=== PATIENT | female | born 1985 | race Caucasian/White ===

== ENCOUNTER 2022-03-01 22:33 | Emergency (ER) | payer OTHER ==
[2022-03-01 22:52] VITALS: BP 106/70; PULSE 82; RESP 16; TEMP 98.4
--- NOTE | 2022-03-01 23:13 | XR ---
EXAMINATION TYPE: XR chest 2V DATE OF EXAM: 03/01/2022 COMPARISON: NONE HISTORY: Cough. Rib pain TECHNIQUE: 2 views FINDINGS: Heart and mediastinum are normal. Lungs are clear. Diaphragm is normal. Bony thorax is inta ct. The pulmonary vascularity is normal. IMPRESSION: Normal chest. No evidence of pneumothorax.
[2022-03-02] MEDS ORDERED: predniSONE 50 MG TAB PO STA (00:20)
--- NOTE | 2022-03-02 00:26 | ED ---
URI HPI - General Chief Complaint: Upper Respiratory Infection Stated Complaint: left rib pain Time Seen by Provider: 03/02/22 00:10 Source: patient, RN notes reviewed Mode of arrival: ambulatory Limitations: no limitations - History of Present Illness Initial Comments: This is a pleasant 36-year-old female presents to emergency department complaining of left chest wall pain which is exacerbated by breathing and coughing. Patient states she started getting ill last week with cough, runny nose, wheezing. Patient had 2 children in the house both of which had RSV. Rates that she was wheezing up to yesterday. She was controlling that with her inhaler. However she states she has a sharp pain in her left chest which is exacerbated by breathing. Patient has had no recent surgeries. No immobilization. No history of DVT or PE. Patient is status post hysterectomy. No family history of blood clots. No headache, no fever or chills, no changes in vision or hearing, no sore throat or difficulty with speech, no neck pain, POSITIVE productive cough, no abdominal pain, no nausea or vomiting, no changes in urination or bowel movements, no numbness or tingling, no extremity pain, no skin rashes or lesions. Past medical, surgical, social, and family history reviewed. MD Complaint: cough - Related Data Previous Rx's Medication Instructions Recorded methylPREDNISolone Dose Pack 4 mg PO DIRECTED #21 tab 03/02/22 [Medrol Dose Pack] Allergies Allergy/AdvReac Type Severity Reaction Status Date / Time azithromycin Allergy Rash/Hives Verified 03/01/22 22:55 cephalexin [From Keflex] Allergy Rash/Hives Verified 03/01/22 22:54 latex Allergy Rash/Hives Verified 03/01/22 22:54 milk Allergy Rash/Hives Verified 03/01/22 22:54 Penicillins Allergy Anaphylaxis Verified 03/01/22 22:52 Review of Systems ROS Statement: Those systems with pertinent positive or pertinent negative responses have been documented in the HPI. ROS Other: All systems not noted in ROS Statement are negative. Past Medical History Additional Past Medical History / Comment(s): pancreatitis, endometrosis History of Any Multi-Drug Resistant Organisms: None Reported Past Surgical History: Section, Cholecystectomy, Hysterectomy Past Psychological History: No Psychological Hx Reported Smoking Status: Never smoker Past Alcohol Use History: None Reported Past Drug Use History: None Reported General Exam Limitations: no limitations General appearance: alert, in no apparent distress Head exam: Present: atraumatic, normocephalic, normal inspection Eye exam: Present: normal appearance, PERRL, EOMI. Absent: scleral icterus, conjunctival injection, periorbital swelling ENT exam: Present: normal exam, normal oropharynx, mucous membranes dry, mucous membranes moist, normal external ear exam Neck exam: Present: normal inspection, full ROM. Absent: tenderness, meningismus, lymphadenopathy Respiratory exam: Present: normal lung sounds bilaterally. Absent: respiratory distress, wheezes, rales, rhonchi, stridor, chest wall tenderness, accessory muscle use, decreased breath sounds, prolonged expiratory Cardiovascular Exam: Present: regular rate, normal rhythm, normal heart sounds. Absent: systolic murmur, diastolic murmur, rubs, gallop, clicks GI/Abdominal exam: Present: soft, normal bowel sounds. Absent: distended, tenderness, guarding, rebound, rigid Extremities exam: Present: normal inspection, full ROM, normal capillary refill. Absent: tenderness, pedal edema, joint swelling, calf tenderness Back exam: Present: normal inspection Neurological exam: Present: alert, oriented X3, CN II-XII intact Psychiatric exam: Present: normal affect, normal mood Skin exam: Present: warm, dry, intact, normal color. Absent: rash Course Vital Signs 03/01/22 22:48 Temperature 98.4 F Pulse Rate 82 Respiratory 16 Rate Blood Pressure 106/70 O2 Sat by Pulse 98 Oximetry Medical Decision Making - Medical Decision Making Patient is Perc 0 Given the patient's symptomology and recent exposure to RSV at the patient has postinflammatory cough with pleurisy. Does not appear to be consistent with bacterial pneumonia based on the normal chest x-ray. Not consistent with cardiac ischemic pain. Not consistent with coronary embolism as the patient has a PERC score of 0. We'll obtain an EKG. We'll add on a COVID-19 test just to ensure the patient doesn't have a concomitant infection. The case was discussed in detail with ED attending physician. Presentation, findings, treatment plan discussed in detail. [employer] Dr. Cutler - Lab Data Lab Results 03/02/22 Range/Units 00:03 Coronavirus (PCR) Not Detected (Not Detectd) Disposition Clinical Impression: Pleurisy, Acute viral bronchitis Disposition: HOME SELF-CARE Condition: Good Instructions (If sedation given, give patient instructions): Pleurisy (ED), Acute Bronchitis (ED) Additional Instructions: Follow-up with your regular physician as directed. Return to the ER immediately if any symptoms worsen, new symptoms arise, or any other problems develop. Prescriptions: methylPREDNISolone Dose Pack [Medrol Dose Pack] 4 mg PO DIRECTED #21 tab Is patient prescribed a controlled substance at d/c from ED?: No Referrals: None,Stated [Primary Care Provider] - 1-2 days Time of Disposition: 01:01
== END 2022-03-02 01:21 | disposition home or self-care (01) ==
LOC: EC 22:33
DX: R09.1 Pleurisy (principal); Z88.1 Allergy status to other antibiotic agents; Z91.040 Latex allergy status; Z91.011 Allergy to milk products; Z88.0 Allergy status to penicillin; Z20.822 Contact with and (suspected) exposure to COVID-19
CPT/HCPCS: 71046; 87635; 93005; 99284

== ENCOUNTER 2023-02-06 08:43 | Emergency (ER) | payer OTHER ==
[2023-02-06 08:59] VITALS: RESP 18
[2023-02-06] MEDS ORDERED: IPRATROPIUM-ALBUTEROL 3 ML NEB INHALATION STA (09:05)
[2023-02-06 09:36] LABS: Basophils % (A) 0 %; Eosinophils # (A) 0.2 k/uL (0-0.7); Eosinophils % (A) 3 %; HCT 39.8 % (34.0-46.0); HGB 13.8 gm/dL (11.4-16.0); Lymphocytes # (A) 0.8 k/uL (1.0-4.8); Lymphocytes % (A) 13 %; MCH 31.9 pg (25.0-35.0); MCHC 34.7 g/dL (31.0-37.0); MCV 91.9 fL (80.0-100.0); Mean Platelet Volume 8.6; Monocytes # (A) 0.5 k/uL (0-1.0); Monocytes % (A) 8 %; Neutrophils # (A) 4.3 k/uL (1.3-7.7); Neutrophils % (A) 74 %; Platelet Count 119 k/uL (150-450); RBC 4.33 m/uL (3.80-5.40); WBC 5.8 k/uL (3.8-10.6)
--- NOTE | 2023-02-06 09:43 | XR ---
EXAMINATION TYPE: XR chest 2V DATE OF EXAM: 02/06/2023 COMPARISON: 03/01/2022 INDICATION: Cough difficulty breathing chest pain TECHNIQUE: Frontal and lateral views of the chest are obtained. FINDINGS: The heart size is normal. The pulmonary vasculature is normal. The lungs are clear. IMPRESSION: 1. No acute pulmonary process.
[2023-02-06 09:51] LABS: ALT 19 U/L (4-34); AST 24 U/L (14-36); African American GFR (CKD) >90 (>60 ml/min/1.73 sqM); Alkaline Phosphatase 39 U/L (38-126); Anion Gap 10 mmol/L; Blood Urea Nitrogen 10 mg/dL (7-17); Calcium 9.1 mg/dL (8.4-10.2); Carbon Dioxide 22 mmol/L (22-30); Chloride 108 mmol/L (98-107); Glucose 97 mg/dL (74-99); Non-African American GFR(CKD) >90 (>60 ml/min/1.73 sqM); Partial Thromboplastin Time 24.4 sec (22.0-30.0); Potassium 4.1 mmol/L (3.5-5.1); Prothrombin Time 11.3 sec (10.0-12.5); Sodium 140 mmol/L (137-145); Total Bilirubin 0.5 mg/dL (0.2-1.3); Total Protein 6.8 g/dL (6.3-8.2)
--- NOTE | 2023-02-06 09:53 | ED ---
SOB HPI - General Chief Complaint: Upper Respiratory Infection Stated Complaint: BRITTNEY, sore throat Time Seen by Provider: 02/06/23 08:53 Source: patient, RN notes reviewed Mode of arrival: ambulatory Limitations: no limitations - History of Present Illness Initial Comments: This is a 37-year-old female who presents to the emergency department for coughing, congestion, shortness of breath, and chest pain. Symptoms started about a month ago. Feels like they're not getting any better. She was started on a course of doxycycline and steroids for bronchitis, which was approximately 2 weeks ago. She denies any improvement following those medications. She does report a history of asthma. She's also been using her albuterol inhaler with no relief and has now run out of this. Her son is sick with similar symptoms. She is concerned about how long this has been occurring. MD Complaint: shortness of breath, cough, chest pain - Related Data Previous Rx's Medication Instructions Recorded methylPREDNISolone Dose Pack 4 mg PO DIRECTED #21 tab 03/02/22 [Medrol Dose Pack] Albuterol Inhaler [Ventolin Hfa 2 puff INHALATION QID PRN #8 gm 02/06/23 Inhaler] Ipratropium-Albuterol Nebulize 3 ml INHALATION Q4-6H PRN #90 ml 02/06/23 [Duoneb 0.5 mg-3 mg/3 ml Soln] Promethazine/Dextromethorphan 5 ml PO Q4-6H PRN #473 ml 02/06/23 [Promethazine-Dm Syrup] predniSONE 50 mg PO DAILY 5 Days #5 tab 02/06/23 Allergies Allergy/AdvReac Type Severity Reaction Status Date / Time azithromycin Allergy Rash/Hives Verified 02/06/23 08:53 cephalexin [From Keflex] Allergy Rash/Hives Verified 02/06/23 08:53 latex Allergy Rash/Hives Verified 02/06/23 08:53 milk Allergy Rash/Hives Verified 02/06/23 08:53 Penicillins Allergy Anaphylaxis Verified 02/06/23 08:53 Review of Systems ROS Statement: Those systems with pertinent positive or pertinent negative responses have been documented in the HPI. ROS Other: All systems not noted in ROS Statement are negative. Past Medical History Additional Past Medical History / Comment(s): pancreatitis, endometrosis History of Any Multi-Drug Resistant Organisms: None Reported Past Surgical History: Section, Cholecystectomy, Hysterectomy Past Psychological History: Depression Smoking Status: Never smoker Past Alcohol Use History: None Reported Past Drug Use History: None Reported General Exam Limitations: no limitations General appearance: alert, in no apparent distress Head exam: Present: atraumatic, normocephalic, normal inspection Respiratory exam: Present: decreased breath sounds, prolonged expiratory. Absent: wheezes, rales, rhonchi Cardiovascular Exam: Present: regular rate, normal rhythm, normal heart sounds. Absent: systolic murmur, diastolic murmur, rubs, gallop, clicks Neurological exam: Present: alert, oriented X3, CN II-XII intact Psychiatric exam: Present: normal affect, normal mood Skin exam: Present: warm, dry, intact, normal color. Absent: rash Course Vital Signs 02/06/23 02/06/23 02/06/23 08:49 11:57 12:06 Temperature 98.9 F Pulse Rate 85 66 68 Respiratory 18 Rate Blood Pressure 123/74 O2 Sat by Pulse 100 Oximetry 02/06/23 12:10 Temperature 98.4 F Pulse Rate 73 Respiratory 18 Rate Blood Pressure 106/61 O2 Sat by Pulse 98 Oximetry Medical Decision Making - Medical Decision Making This is a 37-year-old female who presents to the emergency department for coughing and shortness of breath. Was pt. sent in by a medical professional or institution? @ -No Did you speak to anyone other than the patient for history? @ -No Did you review nursing and triage notes? @ -Yes, and I agree, it is accurate with regards to the patient's symptoms. Were old charts reviewed? @ -No Differential Diagnosis? @ -Differential Dyspnea: Coronary syndrome, arrhythmia, tamponade, asthma, COPD, pulmonary embolism, pneumonia, pneumothorax, pulmonary effusion, anaphylaxis, diabetic ketoacidosis, flailed chest, pulmonary contusion, diaphragmatic rupture, anemia, neuromuscular, this is not meant to be an all-inclusive list. EKG interpreted by me (3pts min.)? @ -EKG interpreted by me demonstrating the following: Sinus rhythm. Ventricular rate 63 beats per minute, ME interval 167 ms, QRS duration 89 ms, QTC 396 ms. X-rays interpreted by me (1pt min.)? @ -Chest x-ray obtained, my interpretation identifies no localized consolidations or infiltrates. CT interpreted by me (1pt min.)? @ -Not obtained U/S interpreted by me (1pt. min.)? @ -Not obtained What testing was considered but not performed? (CT, X-rays, U/S, labs)? Why? @ -None What meds were considered but not given? Why? @ -None Did you discuss the management of the patient with other professionals? @ -No Did you reconcile home meds? @ -No Was smoking cessation discussed for >3mins.? @ -No Was critical care preformed (if so, how long)? @ -No Were there social determinants of health that impacted care today? How? (Homelessness, low income, unemployed, alcoholism, drug addiction, transportation, low edu. Level, literacy, decrease access to med. care, snf, rehab)? @ -No Was there de-escalation of care discussed even if they declined? (Discuss DNR or withdrawal of care, Hospice)? @ -No What co-morbidities impacted this encounter? (DM, HTN, Smoking, COPD, CAD, Cancer, CVA, Hep., AIDS, mental health diagnosis, sleep apnea, morbid obesity)? @ -Asthma Was patient admitted / discharged? @ -Discharged. Lab work obtained and found to be nonactionable, including a negative troponin and negative d-dimer. Chest x-ray reveals no acute process. Covid, influenza, and RSV testing were negative. Heterophile negative as well. Duoneb breathing treatment administered in the emergency department, which the patient felt was beneficial. Advised that this may be a prolonged bronchitis, which may be exacerbated by the weather changes and asthma. She was given a prescription for a 5 day course of prednisone, promethazine DM cough syrup, a refill on her albuterol inhaler and nebulizer treatments. She was otherwise discharged home in stable condition with instruction to follow up with her primary care provider. Undiagnosed new problem with uncertain prognosis? @ -None Drug Therapy requiring intensive monitoring for toxicity (Heparin, Nitro, Insulin, Cardizem)? @ -None Were any procedures done? @ -None Diagnosis/symptom? @ -Asthmatic bronchitis Acute, or Chronic, or Acute on Chronic? @ -Acute Uncomplicated (without systemic symptoms) or Complicated (systemic symptoms)? @ -Uncomplicated Side effects of treatment? @ -None Exacerbation, Progression, or Severe Exacerbation] @ -Not applicable Poses a threat to life or bodily function? @ -No Return precautions reviewed in depth, the patient is instructed to return to the emergency department with any new, worsening, or concerning symptoms. Patient verbalized understanding. This case was discussed in detail with the attending ED physician, Dr. Meier. Presentation, findings, and treatment plan discussed in detail as well. - Lab Data Result diagrams: 02/06/23 09:14 02/06/23 09:14 Lab Results 02/06/23 02/06/23 02/06/23 Range/Units 09:14 09:14 09:14 WBC 5.8 (3.8-10.6) k/uL RBC 4.33 (3.80-5.40) m/uL Hgb 13.8 (11.4-16.0) gm/dL Hct 39.8 (34.0-46.0) % MCV 91.9 (80.0-100.0) fL MCH 31.9 (25.0-35.0) pg MCHC 34.7 (31.0-37.0) g/dL RDW 12.0 (11.5-15.5) % Plt Count 119 L (150-450) k/uL MPV 8.6 Neutrophils % 74 % Lymphocytes % 13 % Monocytes % 8 % Eosinophils % 3 % Basophils % 0 % Neutrophils # 4.3 (1.3-7.7) k/uL Lymphocytes # 0.8 L (1.0-4.8) k/uL Monocytes # 0.5 (0-1.0) k/uL Eosinophils # 0.2 (0-0.7) k/uL Basophils # 0.0 (0-0.2) k/uL PT 11.3 (10.0-12.5) sec INR 1.0 (<1.2) APTT 24.4 (22.0-30.0) sec D-Dimer 0.28 (<0.60) mg/L FEU Sodium (137-145) mmol/L Potassium (3.5-5.1) mmol/L Chloride (98-107) mmol/L Carbon Dioxide (22-30) mmol/L Anion Gap mmol/L BUN (7-17) mg/dL Creatinine (0.52-1.04) mg/dL Est GFR (CKD-EPI)AfAm (>60 ml/min/1.73 sqM) Est GFR (CKD-EPI)NonAf (>60 ml/min/1.73 sqM) Glucose (74-99) mg/dL Calcium (8.4-10.2) mg/dL Total Bilirubin (0.2-1.3) mg/dL AST (14-36) U/L ALT (4-34) U/L Alkaline Phosphatase (38-126) U/L Troponin I (0.000-0.034) ng/mL Total Protein (6.3-8.2) g/dL Albumin (3.5-5.0) g/dL Heterophile Antibody Negative (Negative) Influenza Type A (PCR) (Not Detectd) Influenza Type B (PCR) (Not Detectd) RSV (PCR) (Not Detectd) SARS-CoV-2 (PCR) (Not Detectd) 02/06/23 02/06/23 02/06/23 Range/Units 09:14 09:14 09:56 WBC (3.8-10.6) k/uL RBC (3.80-5.40) m/uL Hgb (11.4-16.0) gm/dL Hct (34.0-46.0) % MCV (80.0-100.0) fL MCH (25.0-35.0) pg MCHC (31.0-37.0) g/dL RDW (11.5-15.5) % Plt Count (150-450) k/uL MPV Neutrophils % % Lymphocytes % % Monocytes % % Eosinophils % % Basophils % % Neutrophils # (1.3-7.7) k/uL Lymphocytes # (1.0-4.8) k/uL Monocytes # (0-1.0) k/uL Eosinophils # (0-0.7) k/uL Basophils # (0-0.2) k/uL PT (10.0-12.5) sec INR (<1.2) APTT (22.0-30.0) sec D-Dimer (<0.60) mg/L FEU Sodium 140 (137-145) mmol/L Potassium 4.1 (3.5-5.1) mmol/L Chloride 108 H (98-107) mmol/L Carbon Dioxide 22 (22-30) mmol/L Anion Gap 10 mmol/L BUN 10 (7-17) mg/dL Creatinine 0.80 (0.52-1.04) mg/dL Est GFR (CKD-EPI)AfAm >90 (>60 ml/min/1.73 sqM) Est GFR (CKD-EPI)NonAf >90 (>60 ml/min/1.73 sqM) Glucose 97 (74-99) mg/dL Calcium 9.1 (8.4-10.2) mg/dL Total Bilirubin 0.5 (0.2-1.3) mg/dL AST 24 (14-36) U/L ALT 19 (4-34) U/L Alkaline Phosphatase 39 (38-126) U/L Troponin I <0.012 (0.000-0.034) ng/mL Total Protein 6.8 (6.3-8.2) g/dL Albumin 4.0 (3.5-5.0) g/dL Heterophile Antibody (Negative) Influenza Type A (PCR) Not Detected (Not Detectd) Influenza Type B (PCR) Not Detected (Not Detectd) RSV (PCR) Not Detected (Not Detectd) SARS-CoV-2 (PCR) Not Detected (Not Detectd) - Radiology Data Radiology results: report reviewed, image reviewed Disposition Clinical Impression: Asthmatic bronchitis Disposition: HOME SELF-CARE Instructions (If sedation given, give patient instructions): Asthma (ED), Acute Bronchitis (ED) Additional Instructions: Return to the emergency department with any new, worsening, or concerning symptoms. Take the prednisone daily for 5 days. The cough medication, albuterol inhaler, and DuoNeb breathing treatments can be used every 4-6 hours as needed. Follow up with your primary care provider in 1-2 days. Prescriptions: Ipratropium-Albuterol Nebulize [Duoneb 0.5 mg-3 mg/3 ml Soln] 3 ml INHALATION Q4-6H PRN #90 ml PRN Reason: Shortness Of Breath predniSONE 50 mg PO DAILY 5 Days #5 tab Promethazine/Dextromethorphan [Promethazine-Dm Syrup] 5 ml PO Q4-6H PRN #473 ml PRN Reason: Cough Albuterol Inhaler [Ventolin Hfa Inhaler] 2 puff INHALATION QID PRN #8 gm PRN Reason: Shortness Of Breath Is patient prescribed a controlled substance at d/c from ED?: No Referrals: Marion Uriarte [Primary Care Provider] - 1-2 days
[2023-02-06 12:30] VITALS: BP 106/61; PULSE 73; TEMP 98.4
== END 2023-02-06 12:13 | disposition home or self-care (01) ==
LOC: EC 08:43
DX: J45.909 Unspecified asthma, uncomplicated (principal); Z86.59 Personal history of other mental and behavioral disorders; Z88.0 Allergy status to penicillin; Z91.040 Latex allergy status; Z91.011 Allergy to milk products; Z88.1 Allergy status to other antibiotic agents; Z20.822 Contact with and (suspected) exposure to COVID-19
CPT/HCPCS: 36415; 71046; 80053; 84484; 85025; 85379; 85610; 85730; 86308; 87636; 93005; 94640; 99285

== ENCOUNTER 2023-02-12 20:26 | Emergency (ER) | payer OTHER ==
[2023-02-12 20:56] VITALS: RESP 18
--- NOTE | 2023-02-12 21:38 | ED ---
General Adult HPI - General Chief complaint: Fever Stated complaint: Fever, Covid exposure Time Seen by Provider: 02/12/23 20:44 Source: patient, RN notes reviewed Mode of arrival: ambulatory Limitations: no limitations - History of Present Illness Initial comments: 37-year-old female with no significant past medical history presents the emergency department with a chief complaint of cough. Patient reports recent Covid exposure. She does report that approximately 3 weeks ago she was diagnosed with an upper respiratory infection when she was given a Zithromax and prednisone. She is complaining of a surgical cough. No known fevers or chills chest pain or shortness of breath , abdominal pain. - Related Data Previous Rx's Medication Instructions Recorded methylPREDNISolone Dose Pack 4 mg PO DIRECTED #21 tab 03/02/22 [Medrol Dose Pack] Albuterol Inhaler [Ventolin Hfa 2 puff INHALATION QID PRN #8 gm 02/06/23 Inhaler] Ipratropium-Albuterol Nebulize 3 ml INHALATION Q4-6H PRN #90 ml 02/06/23 [Duoneb 0.5 mg-3 mg/3 ml Soln] Promethazine/Dextromethorphan 5 ml PO Q4-6H PRN #473 ml 02/06/23 [Promethazine-Dm Syrup] predniSONE 50 mg PO DAILY 5 Days #5 tab 02/06/23 Allergies Allergy/AdvReac Type Severity Reaction Status Date / Time azithromycin Allergy Rash/Hives Verified 02/12/23 20:36 cephalexin [From Keflex] Allergy Rash/Hives Verified 02/12/23 20:36 latex Allergy Rash/Hives Verified 02/12/23 20:36 milk Allergy Rash/Hives Verified 02/12/23 20:36 Penicillins Allergy Anaphylaxis Verified 02/12/23 20:36 Review of Systems ROS Statement: Those systems with pertinent positive or pertinent negative responses have been documented in the HPI. ROS Other: All systems not noted in ROS Statement are negative. Past Medical History Additional Past Medical History / Comment(s): pancreatitis, endometrosis History of Any Multi-Drug Resistant Organisms: None Reported Past Surgical History: Section, Cholecystectomy, Hysterectomy Past Psychological History: Depression Smoking Status: Never smoker Past Alcohol Use History: None Reported Past Drug Use History: None Reported General Exam - General Exam Comments Initial Comments: General: Alert, in no acute distress Head: atraumatic normocephalic. Eyes PERRL, EOMI intact, mucous membranes moist Respiratory: Lungs clear to auscultation bilaterally Cardiovascular: Heart rate regular rate and rhythm Abdominal: Soft without guarding or rebound Extremities: Normal inspection with full range of motion and normal capillary refill Neuroogic: alert and oriented 3, CN II-XII intact, able to ambulate with steady gait Skin: warm dry and intact with normal color Limitations: no limitations Course Vital Signs 02/12/23 02/12/23 02/12/23 20:29 20:42 21:57 Temperature 99.1 F 98.8 F Pulse Rate 82 86 Respiratory 16 18 18 Rate Blood Pressure 118/63 94/59 O2 Sat by Pulse 98 96 Oximetry Medical Decision Making - Medical Decision Making Was pt. sent in by a medical professional or institution (, PA, COLLECTIONS OFFICER, urgent care, hospital, or skilled nursing...) When possible be specific @ -[No] Did you speak to anyone other than the patient for history (EMS, parent, family, police, friend...)? What history was obtained from this source @ -no Did you review nursing and triage notes (agree or disagree)? Why? @ -[I reviewed and agree with nursing and triage notes] Were old charts reviewed (outside hosp., previous admission, EMS record, old EKG, old radiological studies, urgent care reports/EKG's, skilled nursing records)? Report findings @ -[No old charts were reviewed] Differential Diagnosis (chest pain, altered mental status, abdominal pain women, abdominal pain men, vaginal bleeding, weakness, fever, dyspnea, syncope, headache, dizziness, GI bleed, back pain, seizure, CVA, palpatations, mental health, musculoskeletal)? @ -[not applicable] EKG interpreted by me (3pts min.). @ -[As above] X-rays interpreted by me (1pt min.). @ Chest x-ray does not reveal any focal consolidation CT interpreted by me (1pt min.). @ -[None done] U/S interpreted by me (1pt. min.). @ -[None done] What testing was considered but not performed or refused? (CT, X-rays, U/S, labs)? Why? @ -[None] What meds were considered but not given or refused? Why? @ -[None] Did you discuss the management of the patient with other professionals (professionals i.e. , PA, COLLECTIONS OFFICER, lab, RT, psych nurse, social work instructor, astrophysics professor, teacher, penal officer, rifle case repairer)? Give summary @ -[No] Was smoking cessation discussed for >3mins.? @ -[No] Was critical care preformed (if so, how long)? @ -[No] Were there social determinants of health that impacted care today? How? (Homelessness, low income, unemployed, alcoholism, drug addiction, transportation, low edu. Level, literacy, decrease access to med. care, nursing home, rehab)? @ -[No] Was there de-escalation of care discussed even if they declined (Discuss DNR or withdrawal of care, Hospice)? DNR status @ -[No] What co-morbidities impacted this encounter? (DM, HTN, Smoking, COPD, CAD, Cancer, CVA, ARF, Chemo, Hep., AIDS, mental health diagnosis, sleep apnea, morbid obesity)? @ -[None] Was patient admitted / discharged? Hospital course, mention meds given and route, prescriptions, significant lab abnormalities, going to OR and other pertinent info. @ -Discharged. This is a 37 year-old female presents emergency Department with upper respiratory symptoms. Patient had a thorough history and physical exam. Heart rate regular rate and rhythm, lungs clear to auscultation bilaterally abdomen soft and nontender. Vital signs stable. Patient had lab studies which included negative Viral panel. I discussed the results in detail with the patient and the patient's mother verbalized understanding all questions addressed. They will with the plan for discharge. Recommend close follow-up in 1-2 days. Patient discharged in stable condition. Case discussed with KARLOS Green who agrees with POC. Undiagnosed new problem with uncertain prognosis? @ -[No] Drug Therapy requiring intensive monitoring for toxicity (Heparin, Nitro, Insulin, Cardizem)? @ -[No] Were any procedures done? @ -[No] Diagnosis/symptom? @ -COVID exposure Acute, or Chronic, or Acute on Chronic? @ -Acute Uncomplicated (without systemic symptoms) or Complicated (systemic symptoms)? @ -Uncomplicated Side effects of treatment? @ -[No] Exacerbation, Progression, or Severe Exacerbation? @ -[No] Poses a threat to life or bodily function? How? (Chest pain, [place], [place], pneumonia, PE, COPD, DKA, ARF, appy, cholecystitis, CVA, Diverticulitis, Homicidal, Suicidal, threat to staff... and all critical care pts) @ -Low likelihood - Lab Data Lab Results 02/12/23 Range/Units 20:57 Influenza Type A (PCR) Not Detected (Not Detectd) Influenza Type B (PCR) Not Detected (Not Detectd) RSV (PCR) Not Detected (Not Detectd) SARS-CoV-2 (PCR) Not Detected (Not Detectd) Disposition Clinical Impression: Fever Disposition: HOME SELF-CARE Condition: Stable Instructions (If sedation given, give patient instructions): Fever in Adults (ED) Additional Instructions: please take Tylenol and Motrin for fever control Please increase fluids for the next 3-5 days Please return to the nearest emergency department if worsening symptoms Is patient prescribed a controlled substance at d/c from ED?: No Referrals: Marion Uriarte [Primary Care Provider] - 1-2 days Time of Disposition: 22:22
--- NOTE | 2023-02-12 21:46 | XR ---
EXAMINATION TYPE: XR chest 2V DATE OF EXAM: 02/12/2023 9:16 PM CLINICAL INDICATION:Female, 37 years old with history of cough; COMPARISON: Chest radiographs from 02/06/2023 TECHNIQUE: XR chest 2V Frontal and lateral views of the chest. FINDINGS: Lungs/Pleura: There is no evidence of pleural effusion, focal consolidation, or pneumothorax. Pulmonary vascularity: Unremarkable. Heart/mediastinum: Cardiomediastinal silhouette is unremarkable. Musculoskeletal: No acute osseous pathology. IMPRESSION: No acute cardiopulmonary disease/process.
[2023-02-12 22:09] VITALS: BP 94/59; PULSE 86; TEMP 98.8
== END 2023-02-12 22:47 | disposition home or self-care (01) ==
LOC: EC 20:26
DX: R50.9 Fever, unspecified (principal); Z88.0 Allergy status to penicillin; Z88.1 Allergy status to other antibiotic agents; Z91.040 Latex allergy status; Z91.011 Allergy to milk products; Z86.59 Personal history of other mental and behavioral disorders; Z20.822 Contact with and (suspected) exposure to COVID-19
CPT/HCPCS: 71046; 87636; 99283

== ENCOUNTER 2023-02-15 20:18 | Emergency (ER) | payer OTHER ==
[2023-02-15 20:35] VITALS: RESP 18; TEMP 99.1
[2023-02-15] MEDS ORDERED: ACETAMINOPHEN TAB 325 MG TAB PO STA (20:49)
[2023-02-15] MEDS ORDERED: IBUPROFEN 600 MG TAB PO STA (20:49)
--- NOTE | 2023-02-15 21:07 | ED ---
ENT HPI - General Chief complaint: ENT Stated complaint: difficulty swallowing Time Seen by Provider: 02/15/23 20:30 Source: patient Mode of arrival: ambulatory Limitations: no limitations - History of Present Illness Initial comments: 37-year-old female presenting with chief complaint of sore throat. Patient states she has had a sore throat for several days but over the last 3 days the pain has worsened. She also admits to cough. Admits to some shortness of breath. She has been seen here on multiple occasions recently for URI like symptoms. She showing no signs of respiratory distress or tripoding. No drooling while obtaining the history. She admits to bilateral ear pressure. Admits to nasal congestion and pressure. - Related Data Previous Rx's Medication Instructions Recorded methylPREDNISolone Dose Pack 4 mg PO DIRECTED #21 tab 03/02/22 [Medrol Dose Pack] Albuterol Inhaler [Ventolin Hfa 2 puff INHALATION QID PRN #8 gm 02/06/23 Inhaler] Ipratropium-Albuterol Nebulize 3 ml INHALATION Q4-6H PRN #90 ml 02/06/23 [Duoneb 0.5 mg-3 mg/3 ml Soln] Promethazine/Dextromethorphan 5 ml PO Q4-6H PRN #473 ml 02/06/23 [Promethazine-Dm Syrup] predniSONE 50 mg PO DAILY 5 Days #5 tab 02/06/23 guaiFENesin-DM 600/30MG [Mucinex 1 tab PO Q12HR PRN #24 tab 02/15/23 Dm] methylPREDNISolone Dose Pack 4 mg PO DIRECTED #21 tab 02/15/23 [Medrol Dose Pack] Allergies Allergy/AdvReac Type Severity Reaction Status Date / Time azithromycin Allergy Rash/Hives Verified 02/15/23 20:26 cephalexin [From Keflex] Allergy Rash/Hives Verified 02/15/23 20:26 latex Allergy Rash/Hives Verified 02/15/23 20:26 milk Allergy Rash/Hives Verified 02/15/23 20:26 Penicillins Allergy Anaphylaxis Verified 02/15/23 20:26 Review of Systems ROS Statement: Those systems with pertinent positive or pertinent negative responses have been documented in the HPI. ROS Other: All systems not noted in ROS Statement are negative. Past Medical History Additional Past Medical History / Comment(s): pancreatitis, endometrosis History of Any Multi-Drug Resistant Organisms: None Reported Past Surgical History: Section, Cholecystectomy, Hysterectomy Past Psychological History: Depression Smoking Status: Never smoker Past Alcohol Use History: None Reported Past Drug Use History: None Reported General Exam Limitations: no limitations General appearance: alert, in no apparent distress Head exam: Present: atraumatic, normocephalic, normal inspection Eye exam: Present: normal appearance, EOMI ENT exam: Present: mucous membranes moist Expanded Ear exam: Present: normal external inspection TM/Canal exam: Effusion: Right TM, Left TM Mouth exam: Present: normal external inspection, tongue normal. Absent: drooling, trismus, muffled voice Throat exam: other (Erythema of the posterior pharynx) Neck exam: Present: normal inspection, full ROM Respiratory exam: Present: normal lung sounds bilaterally. Absent: respiratory distress, wheezes, rales, rhonchi, stridor Cardiovascular Exam: Present: regular rate, normal rhythm, normal heart sounds. Absent: systolic murmur, diastolic murmur, rubs, gallop, clicks Neurological exam: Present: alert, oriented X3 Psychiatric exam: Present: normal affect, normal mood Skin exam: Present: warm, dry, intact, normal color. Absent: rash Course Vital Signs 02/15/23 02/15/23 20:24 23:31 Temperature 99.1 F Pulse Rate 82 78 Respiratory 18 18 Rate Blood Pressure 117/82 113/76 O2 Sat by Pulse 99 97 Oximetry Medical Decision Making - Medical Decision Making Was pt. sent in by a medical professional or institution (, PA, HPLC CHEMIST, urgent care, hospital, or fpc...) When possible be specific @ -No Did you speak to anyone other than the patient for history (EMS, parent, family, police, friend...)? What history was obtained from this source @ -No Did you review nursing and triage notes (agree or disagree)? Why? @ -I reviewed and agree with nursing and triage notes Were old charts reviewed (outside hosp., previous admission, EMS record, old EKG, old radiological studies, urgent care reports/EKG's, fpc records)? Report findings @ -No old charts were reviewed Differential Diagnosis (chest pain, altered mental status, abdominal pain women, abdominal pain men, vaginal bleeding, weakness, fever, dyspnea, syncope, headache, dizziness, GI bleed, back pain, seizure, CVA, palpatations, mental health, musculoskeletal)? @ -Differential includes influenza, RSV, Covid, group A strep, pneumonia, this is not an all inclusive list EKG interpreted by me (3pts min.). @ -As above X-rays interpreted by me (1pt min.). @ -Soft tissue neck x-ray shows some possible mild subglottic narrowing correlate for laryngitis Chest x-ray shows no acute cardiopulmonary process CT interpreted by me (1pt min.). @ -None done U/S interpreted by me (1pt. min.). @ -None done What testing was considered but not performed or refused? (CT, X-rays, U/S, labs)? Why? @ -None What meds were considered but not given or refused? Why? @ -None Did you discuss the management of the patient with other professionals (professionals i.e. , PA, HPLC CHEMIST, lab, RT, psych nurse, socially responsible investment adviser, city carrier assistant, teacher, chemical instrumentation officer, egg caser)? Give summary @ -No Was smoking cessation discussed for >3mins.? @ -No Was critical care preformed (if so, how long)? @ -No Were there social determinants of health that impacted care today? How? (Homelessness, low income, unemployed, alcoholism, drug addiction, transportation, low edu. Level, literacy, decrease access to med. care, retirement, rehab)? @ -No Was there de-escalation of care discussed even if they declined (Discuss DNR or withdrawal of care, Hospice)? DNR status @ -No What co-morbidities impacted this encounter? (DM, HTN, Smoking, COPD, CAD, Cancer, CVA, ARF, Chemo, Hep., AIDS, mental health diagnosis, sleep apnea, morbid obesity)? @ -None Was patient admitted / discharged? Hospital course, mention meds given and route, prescriptions, significant lab abnormalities, going to OR and other pertinent info. @ -37-year-old female presenting with chief complaint of sore throat and cough. History and physical exam conducted. Patient is given Mucinex DM. She declines Motrin and Tylenol. She is negative for influenza, RSV, Covid, group A strep. Negative chest x-ray. Soft tissue neck x-ray shows some mild subglottic narrowing that corresponds with laryngitis given the patient's clinical presentation. Throat culture is sent out. Patient is given a dose of Decadron here in the ER and a Medrol Dosepak for home. Follow-up with PCP. Report back to ER with any new or worsening symptoms. Discussed return parameters and answered all questions. Patient conveyed verbal understanding and agreed to the plan. I discussed this case in detail with my attending Dr. Cutler Undiagnosed new problem with uncertain prognosis? @ -No Drug Therapy requiring intensive monitoring for toxicity (Heparin, Nitro, Insulin, Cardizem)? @ -No Were any procedures done? @ -No Diagnosis/symptom? @ -Laryngitis Acute, or Chronic, or Acute on Chronic? @ -Acute Uncomplicated (without systemic symptoms) or Complicated (systemic symptoms)? @ -Uncomplicated Side effects of treatment? @ -No Exacerbation, Progression, or Severe Exacerbation? @ -No Poses a threat to life or bodily function? How? (Chest pain, [place], [place], pneumonia, PE, COPD, DKA, ARF, appy, cholecystitis, CVA, Diverticulitis, Homicidal, Suicidal, threat to staff... and all critical care pts) @ -No - Lab Data Lab Results 02/15/23 02/15/23 Range/Units 21:53 21:53 Influenza Type A (PCR) Not Detected (Not Detectd) Influenza Type B (PCR) Not Detected (Not Detectd) RSV (PCR) Not Detected (Not Detectd) SARS-CoV-2 (PCR) Not Detected (Not Detectd) Group A Strep (PCR) NOT DETECTED (Not Detectd) Disposition Clinical Impression: Laryngitis Disposition: HOME SELF-CARE Condition: Good Instructions (If sedation given, give patient instructions): Pharyngitis (ED) Additional Instructions: Follow-up with PCP. Report back to ER with any new or worsening symptoms. Prescriptions: methylPREDNISolone Dose Pack [Medrol Dose Pack] 4 mg PO DIRECTED #21 tab guaiFENesin-DM 600/30MG [Mucinex Dm] 1 tab PO Q12HR PRN #24 tab PRN Reason: Congestion Is patient prescribed a controlled substance at d/c from ED?: No Referrals: Marion Uriarte [Primary Care Provider] - 1-2 days Time of Disposition: 23:26
[2023-02-15] MEDS ORDERED: guaiFENesin-DM 600/30MG 1 EACH TAB.ER.12H PO SCH (21:15)
--- NOTE | 2023-02-15 21:29 | XR ---
EXAMINATION TYPE: XR soft tissue neck DATE OF EXAM: 02/15/2023 9:12 PM CLINICAL INDICATION:Female, 37 years old with history of diff swallowing; [facility] COMPARISON: None TECHNIQUE: The soft tissues of the neck were imaged in frontal and lateral views. FINDINGS: The prevertebral soft tissues are unremarkable. There is no evidence of mass effect or trac heal deviation. No acute osseous abnormality demonstrated. No evidence of subglottic narrowing. Mil d narrowing of the subglottic airway proximal trachea this is best appreciated on lateral view.. IMPRESSION: There may be some mild subglottic narrowing correlate for laryngitis.
--- NOTE | 2023-02-15 21:34 | XR ---
EXAMINATION TYPE: XR chest 2V DATE OF EXAM: 02/15/2023 9:12 PM CLINICAL INDICATION:Female, 37 years old with history of BRITTNEY; COMPARISON: Chest radiographs from 02/12/2023 TECHNIQUE: XR chest 2V Frontal and lateral views of the chest. FINDINGS: Lungs/Pleura: There is no evidence of pleural effusion, focal consolidation, or pneumothorax. Pulmonary vascularity: Unremarkable. Heart/mediastinum: Cardiomediastinal silhouette is unremarkable. Musculoskeletal: No acute osseous pathology. IMPRESSION: No acute cardiopulmonary disease/process.
[2023-02-15] MEDS ORDERED: DEXAMETHASONE SOD PHOSPHATE 10 MG/ML 1 ML VIAL IM STA (23:24)
[2023-02-15 23:36] VITALS: BP 113/76; PULSE 78
== END 2023-02-15 23:38 | disposition home or self-care (01) ==
LOC: EC 20:18
DX: J04.0 Acute laryngitis (principal); Z86.59 Personal history of other mental and behavioral disorders; Z88.0 Allergy status to penicillin; Z91.040 Latex allergy status; Z91.011 Allergy to milk products; Z88.1 Allergy status to other antibiotic agents; Z20.822 Contact with and (suspected) exposure to COVID-19
CPT/HCPCS: 87651; 87070; 87636; 70360; 71046; 99283; 96372; J1100